=== PATIENT | female | born 1970 | race Caucasian/White ===

== ENCOUNTER → 2016-04-09 | Outpatient (CLI) | payer OTHER ==
[~2016-04-09] MED LIST: GADOBUTROL 10 ML VIAL IVP ONE
--- NOTE | 2016-04-09 15:03 | MR ---
MRI of the Brain(Without and With Contrast) Contrast: 6.5 mL intravenous Gadavist without complication. History: Left-sided headaches, recurrent. R51 Technique: Sagittal and axial T1-weighted images. Axial fast T2 2nd echo, GRE, diffusion and FLAIR im ages. Postgadolinium axial and coronal images. Findings: There is a small focal nodular area of fluid in the posterior inferior right basal ganglia that is consistent with an a prominent perivascular space (etat crible). A few scattered isovolumic T2-weighted foci of hyperintensity are present in the supratentorium and consistent with sequelae of prior migraine headaches. None of these are associated with hemorrhage or restricted diffusion. There is no evidence of mass lesion, hemorrhage, acute infarction, hydrocephalus, metastatic disease, or a bnormal meningeal enhancement to suggest meningitis. There is no evidence of a chronic subdural hemat adis. The paranasal and mastoid sinuses are normally aerated. The pituitary gland and suprasellar cist dominic looks normal. Flow-void is present in both cavernous carotid arteries and in the basilar artery. No obvious aneurysm is identified around the af[place] of [place]. The orbits and intraorbital contents a ppear normal. There is mild focal mucosal thickening in the anterior left ethmoid sinus. Other sinuse s are normally aerated. The craniocervical junction is normal. Impression:1. No evidence for mass, meningitis or parenchymal source for left frontal headaches. 2. Mild anterior left ethmoidal sinus disease.
== END ==
LOC: FIMAGING 12:48
PROVIDERS: ATTEND Internal Medicine
DX: R51 Headache (principal)
CPT/HCPCS: A9585

== ENCOUNTER → 2016-04-24 | Outpatient (CLI) | payer OTHER | LOC: FIMAGING 09:32 | PROVIDERS: ATTEND Internal Medicine | DX: R10.11 Right upper quadrant pain (principal) ==

== ENCOUNTER → 2017-01-27 | Outpatient (CLI) | payer OTHER | LOC: FIMAGING 11:31 | PROVIDERS: ATTEND Obstetrics & Gynecology | DX: Z12.31 Encounter for screening mammogram for malignant neoplasm of breast (principal) | CPT/HCPCS: G0202 ==

== ENCOUNTER → 2018-02-10 | Outpatient (CLI) | payer OTHER | LOC: FIMAGING 11:42 | PROVIDERS: ATTEND Obstetrics & Gynecology | DX: Z12.31 Encounter for screening mammogram for malignant neoplasm of breast (principal) ==